=== PATIENT | female | born 1955 | race Caucasian/White ===

== ENCOUNTER 2017-10-10 16:48 | Emergency (ER) | payer OTHER ==
[~2017-10-10] VITALS: Ht 162.6 cm; Wt 82.6 kg
[~2017-10-10 16:48] MED LIST: ACTOS15 MG PO; ALBUTEROL SULF8.5 GM IH; ALEVE220 M2 PO; ATORVASTATIN CA40 MG PO; Aspirin E.C. PO; Bactrim,Septra DS 80 PO; DEPAKOTE500 MG PO; DESYREL 150 MG150 MG PO; DITROPAN XL10 MG PO; DITROPAN XL5 MG PO; Depakote ER (Extende PO; ENABLEX15 MG PO; FENOFIBRATE200 M1 PO; FIORICET,ESG1 TABLET PO; FLEXERIL5 MG PO; IBUPROFEN600 MG PO; INDERAL LA80 MG PO; K-DUR10 MEQ PO; KEPPRA XR500 MG PO; KEPPRA1000 MG PO; KEPPRA500 MG PO; KEPPRA750 MG PO; KLONOPIN0.5 M1 PO; KLONOPIN1 MG PO; KLOR-CON M1010 MEQ PO; LASIX40 MG PO; LEVO-T88 MCG PO; LEVOTHROID88 MCG PO; LEXAPRO20 MG PO; MOTRIN400 MG PO; MOTRIN600 MG PO; NEURONTIN300 MG PO; NEURONTIN600 MG PO; OXYCODONE-APAP1 EAC6 PO; PERCOCET 5/31 TABLET PO; PLAVIX75 MG PO; PRAVACHOL80 MG PO; PREDNISONE50 MG PO; TOPIRAMATE25 MG PO; Tylenol Regular Stre PO; VENTOLIN HFA18 GM IH; VIMPAT50 MG PO; ZITHROMAX Z-PA250 MG PO; ZOLOFT100 MG PO; ZOLOFT50 MG PO; Zoloft PO
[2017-10-10 23:42] LABS: HEMATOCRIT 39.3 % (36.0-46.0); HEMOGLOBIN 13.2 G/DL (11.9-15.5); MCH 31.9 PG (29.0-34.0); MCHC 33.6 G/DL (30.0-36.0); MCV 94.9 FL (83-99); RBC DIS.WIDTH-CV 12.6 % (11.8-14.6); RBC DIS.WIDTH-SD 44.3 % (39-53); RED BLOOD COUNT 4.14 M/uL (3.80-5.20)
[2017-10-10 23:52] LABS: CHLORIDE 110 mEq/L (99-109); POTASSIUM 3.5 mEq/L (3.7-5.4); SODIUM 141 mEq/L (136-147)
[2017-10-10 23:53] LABS: GLUCOSE 96 mg/dL (70-99)
[2017-10-10 23:57] LABS: CREATININE 0.7 mg/dL (0.6-1.3); GFR ESTIMATE (CALCULATED) > 59 mL/min/
[2017-10-10 23:58] LABS: UREA NITROGEN (BUN) 12 mg/dL (9-23)
[2017-10-11 00:01] LABS: TROP-I INTERPRETATION NEGATIVE; TROPONIN-I < 0.01 ng/mL (0.0-0.30)
[2017-10-11 00:52] LABS: PLAT.SUFFICIENCY ADEQUATE; PLATELET COUNT 194 K/uL (156-360)
[2017-10-11] MEDS ORDERED: NAPROSYN500 MG PO (01:19)
[2017-10-11 01:30] VITALS: BP 134/68
== END 2017-10-11 01:30 | disposition home or self-care (01) ==
LOC: EME 16:48
PROVIDERS: Emergency Medicine
DX: M54.9 Dorsalgia, unspecified (principal); R07.81 Pleurodynia; G43.909 Migraine, unspecified, not intractable, without status migrainosus; Z91.14 Patient's other noncompliance with medication regimen; E11.9 Type 2 diabetes mellitus without complications; E03.9 Hypothyroidism, unspecified; Z79.02 Long term (current) use of antithrombotics/antiplatelets; Z79.84 Long term (current) use of oral hypoglycemic drugs; F17.200 Nicotine dependence, unspecified, uncomplicated
CPT/HCPCS: 70450; 71046; 80048; 83605; 84484; 85027; 93005; 99281; 99283

== ENCOUNTER 2018-01-10 14:16 | Emergency (ER) | payer OTHER ==
[~2018-01-10] VITALS: Ht 165.1 cm; Wt 75.0 kg
[~2018-01-10 14:16] MED LIST changes: +NAPROSYN500 MG PO
[2018-01-10 14:58] LABS: AMYLASE 31 IU/L (1-118); CHLORIDE 109 mEq/L (99-109); SODIUM 144 mEq/L (136-147)
[2018-01-10 14:59] LABS: GLUCOSE 116 mg/dL (70-99)
[2018-01-10 15:03] LABS: CREATININE 0.7 mg/dL (0.6-1.3); GFR ESTIMATE (CALCULATED) > 59 mL/min/; SERUM ETHYL ALCOHOL < 10 mg/dL
[2018-01-10 15:04] LABS: UREA NITROGEN (BUN) 11 mg/dL (9-23)
[2018-01-10 15:06] LABS: LIPASE 11 U/L (1.0-51.0)
[2018-01-10 15:11] LABS: BASOPHIL (%) 0.8 % (0-1); EOSINOPHIL (%) 3.4 % (0-5); EOSINOPHIL COUNT 0.2 K/uL (0-0.3); HEMATOCRIT 37.9 % (36.0-46.0); HEMOGLOBIN 12.9 G/DL (11.9-15.5); IMMATURE GRANULOCYTE (%) 0.2 % (0.0-0.7); LYMPHOCYTE (%) 37.7 % (15-42); LYMPHOCYTE COUNT 1.8 K/uL (1.0-2.8); MCH 32.8 PG (29.0-34.0); MCV 96.4 FL (83-99); MONOCYTE (%) 5.9 % (3-12); MONOCYTE COUNT 0.3 K/uL (0-0.8); NEUTROPHIL COUNT 2.5 K/uL (1.8-6.4); PLATELET COUNT 173 K/uL (156-360); RBC DIS.WIDTH-CV 12.5 % (11.8-14.6); RBC DIS.WIDTH-SD 44.9 % (39-53); RED BLOOD COUNT 3.93 M/uL (3.80-5.20); WHITE BLOOD COUNT 4.7 K/uL (4.1-10.2)
[2018-01-10 15:11] LABS: PTT 27.3 SEC (25-37)
[2018-01-10 15:12] LABS: TROP-I INTERPRETATION NEGATIVE; TROPONIN-I < 0.01 ng/mL (0.0-0.30)
[2018-01-10 17:03] LABS: APPEARANCE CLEAR ((CLEAR)); BILIRUBIN NEGATIVE; BLOOD NEGATIVE; COLOR YELLOW ((YELLOW)); GLUCOSE (STRIP) NEGATIVE; KETONES NEGATIVE; LEUKOCYTES NEGATIVE; NITRITE NEGATIVE; PROTEIN (STRIP) NEGATIVE; SPECIFIC GRAVITY 1.011 (1.000-1.030); UCUL ADDED? NO; UROBILINOGEN 0.2 MG/DL (0.2-1.0)
[2018-01-10 17:17] LABS: AMPHETAMINE NEGATIVE (500 ng/mL); BARBITURATES PRESUMPTIVE POSITIVE (200 ng/mL); BENZODIAZEPINES NEGATIVE (150 ng/mL); BUPRENORPHINE NEGATIVE (10 ng/mL); COCAINE NEGATIVE (150 ng/mL); METHADONE NEGATIVE (200 ng/mL); METHAMPHETAMINE NEGATIVE (500 ng/mL); OPIATES (MORPHINE) NEGATIVE (100 ng/mL); OXYCODONE NEGATIVE (100 ng/mL); PHENCYCLIDINE NEGATIVE (25 ng/mL); PROPOXYPHENE NEGATIVE (300 ng/mL); THC CANNABINOIDS NEGATIVE (50 ng/mL); TRICYCLIC ANTIDEPRESSANTS NEGATIVE (300 ng/mL)
[2018-01-10] MEDS ORDERED: IMITREX25 MG PO (18:11)
[2018-01-10] MEDS ORDERED: REGLAN10 MG PO (18:11)
[2018-01-10 18:46] VITALS: BP 110/61
== END 2018-01-10 18:48 | disposition home or self-care (01) ==
LOC: EME → EDBD 14:16 → EME 18:48
PROVIDERS: Emergency Medicine
DX: G43.909 Migraine, unspecified, not intractable, without status migrainosus (principal); R00.1 Bradycardia, unspecified; E11.9 Type 2 diabetes mellitus without complications; E03.9 Hypothyroidism, unspecified; F32.9 Major depressive disorder, single episode, unspecified; F17.200 Nicotine dependence, unspecified, uncomplicated; Z79.02 Long term (current) use of antithrombotics/antiplatelets; Z79.891 Long term (current) use of opiate analgesic; Z90.49 Acquired absence of other specified parts of digestive tract; Z88.8 Allergy status to other drugs, medicaments and biological substances
CPT/HCPCS: 70450; 80048; 81003; 82150; 82948; 83690; 84484; 84999; 85025; 85610; 85730; 86850; 86900; 86901; 93005; 99281; 99285; G0480; J1630

== ENCOUNTER 2018-02-07 17:01 | Emergency (ER) | payer OTHER ==
[~2018-02-07] VITALS: Ht 162.6 cm; Wt 84.2 kg
[~2018-02-07 17:01] MED LIST changes: +IMITREX25 MG PO; +REGLAN10 MG PO
[2018-02-07] MEDS ORDERED: FIORICET 50-301 EAC1 PO (21:21)
[2018-02-07 22:21] VITALS: BP 116/86
== END 2018-02-07 22:46 | disposition home or self-care (01) ==
LOC: EME 17:01
DX: R51 Headache (principal); E11.9 Type 2 diabetes mellitus without complications; E03.9 Hypothyroidism, unspecified; R56.9 Unspecified convulsions; G43.909 Migraine, unspecified, not intractable, without status migrainosus; F32.9 Major depressive disorder, single episode, unspecified; F17.200 Nicotine dependence, unspecified, uncomplicated; Z90.49 Acquired absence of other specified parts of digestive tract; Z88.8 Allergy status to other drugs, medicaments and biological substances
CPT/HCPCS: 99281; 99284